=== PATIENT | male | born 1940 | race Caucasian/White ===

== ENCOUNTER 2016-08-28 08:29 | Inpatient (IN) | payer MEDICARE, MEDICAID ==
[~2016-08-28] VITALS: Ht 167.6 cm; Wt 66.0 kg
[2016-08-28] MEDS ORDERED: METHYLPRED SOD SUCC 125 MG/2 ML VIAL ONE (08:57)
[2016-08-28] MEDS ORDERED: DUONEB INH ONE ×2 (09:01→09:18)
[2016-08-28] MEDS ORDERED: SALINE FLUSH 10 ML FLUSH PRN (10:40)
[2016-08-28] MEDS ORDERED: ONDANSETRON 4 MG VIAL IV PRN (10:40)
[2016-08-28] MEDS: DUONEB INH SCH ×4 (10:40→22:54)
[2016-08-28] MEDS: ENOXAPARIN 40 MG/0.4 ML SYR SUBQ SCH (11:54)
[2016-08-28 12:11] VITALS: BMI 24.2
[2016-08-28] MEDS: CEFTRIAXONE 1 GM in SODIUM CHLORIDE 0.9% 50 ML IV SCH (13:08)
[2016-08-28 13:12] VITALS: BP_SYST 123; BP_SYST 147; RESP 18; TEMP 97.5
[2016-08-28 15:09] VITALS: RESP 26
[2016-08-28] MEDS: METHYLPRED SOD SUCC 40 MG VIAL IV SCH ×2 (15:38→23:26)
[2016-08-28 16:00] VITALS: BP_SYST 149; RESP 18; TEMP 97.7
[2016-08-28] MEDS: NICOTINE 14 MG/24 HR TDSY TRANSDERM SCH (17:21)
[2016-08-28 19:55] VITALS: BP_SYST 131; RESP 20; TEMP 97.5
[2016-08-28] MEDS: SALINE FLUSH 10 ML FLUSH SCH (20:00)
[2016-08-28 21:14] VITALS: Ht 167.6 cm; Wt 66.0 kg
[2016-08-28 23:18] VITALS: BP_SYST 136; RESP 18; TEMP 97.8
[2016-08-29] MEDS: NEB-ALBUTEROL 2.5 MG/3 ML INH PRN (03:01)
[2016-08-29 03:20] VITALS: BP_SYST 145; RESP 18; TEMP 97.5
[2016-08-29] MEDS: SODIUM CHLORIDE 0.9% FLUSH BAG 500 ML IV SCH ×3 (05:58→06:00)
[2016-08-29 07:00] VITALS: BP_SYST 145; RESP 20; TEMP 97.5
[2016-08-29] MEDS: DUONEB INH SCH ×3 (08:17→22:28)
[2016-08-29] MEDS ORDERED: MISSING DOSE XX ONE (09:00)
[2016-08-29] MEDS: CEFTRIAXONE 1 GM in SODIUM CHLORIDE 0.9% 50 ML IV SCH (09:16)
[2016-08-29] MEDS: METHYLPRED SOD SUCC 40 MG VIAL IV SCH ×3 (09:17→23:28)
[2016-08-29] MEDS: SALINE FLUSH 10 ML FLUSH SCH ×2 (09:17→20:34)
[2016-08-29] MEDS: ENOXAPARIN 40 MG/0.4 ML SYR SUBQ SCH (09:18)
[2016-08-29] MEDS: NICOTINE 14 MG/24 HR TDSY TRANSDERM SCH (09:25)
[2016-08-29 11:00] VITALS: BP_SYST 129; RESP 20; TEMP 97.8
[2016-08-29 15:34] VITALS: BP_SYST 138; RESP 20; TEMP 97.2
[2016-08-29 19:15] VITALS: BP_SYST 165; RESP 20; TEMP 98
[2016-08-29] MEDS: FAMOTIDINE 20 MG TAB PO SCH (20:34)
[2016-08-29 23:11] VITALS: BP_SYST 140; RESP 20; TEMP 97.5
[2016-08-30] MEDS: NEB-ALBUTEROL 2.5 MG/3 ML INH PRN ×2 (02:57→03:52)
[2016-08-30 03:40] VITALS: BP_SYST 139; RESP 20; TEMP 97.3
[2016-08-30] MEDS: SODIUM CHLORIDE 0.9% FLUSH BAG 500 ML IV SCH ×3 (06:00→06:21)
[2016-08-30] MEDS: DUONEB INH SCH ×4 (07:57→23:16)
[2016-08-30 08:02] VITALS: BP_SYST 136; RESP 18; TEMP 97.5
[2016-08-30] MEDS: SALINE FLUSH 10 ML FLUSH SCH ×2 (08:10→20:57)
[2016-08-30] MEDS: METHYLPRED SOD SUCC 40 MG VIAL IV SCH ×3 (08:11→20:59)
[2016-08-30] MEDS: NICOTINE 14 MG/24 HR TDSY TRANSDERM SCH (08:12)
[2016-08-30] MEDS: FAMOTIDINE 20 MG TAB PO SCH ×2 (08:12→20:56)
[2016-08-30] MEDS: ENOXAPARIN 40 MG/0.4 ML SYR SUBQ SCH (08:12)
[2016-08-30] MEDS: CEFTRIAXONE 1 GM in SODIUM CHLORIDE 0.9% 50 ML IV SCH (08:13)
[2016-08-30 11:00] VITALS: BP_SYST 126; RESP 18; TEMP 97.3
[2016-08-30 14:52] VITALS: BP_SYST 166; RESP 22; TEMP 97.3
[2016-08-30 19:39] VITALS: BP_SYST 136; RESP 18; TEMP 97.3
[2016-08-30 23:33] VITALS: BP_SYST 147; RESP 20; TEMP 97.4
[2016-08-31] VITALS (7 sets, daily range): BP systolic 102–158; RESP 18–20; TEMP 96.6–97.9
[2016-08-31] MEDS: SODIUM CHLORIDE 0.9% FLUSH BAG 500 ML IV SCH ×3 (01:30)
[2016-08-31] MEDS: NEB-ALBUTEROL 2.5 MG/3 ML INH PRN ×2 (03:29→11:03)
[2016-08-31] MEDS: DUONEB INH SCH ×4 (07:38→22:50)
[2016-08-31] MEDS: CEFTRIAXONE 1 GM in SODIUM CHLORIDE 0.9% 50 ML IV SCH (08:54)
[2016-08-31] MEDS: FAMOTIDINE 20 MG TAB PO SCH ×2 (08:54→20:34)
[2016-08-31] MEDS: ENOXAPARIN 40 MG/0.4 ML SYR SUBQ SCH (08:54)
[2016-08-31] MEDS: NICOTINE 14 MG/24 HR TDSY TRANSDERM SCH (08:55)
[2016-08-31] MEDS: SALINE FLUSH 10 ML FLUSH SCH ×2 (08:55→20:34)
[2016-08-31] MEDS: METHYLPRED SOD SUCC 40 MG VIAL IV SCH ×2 (08:55→16:14)
[2016-09-01] MEDS: NEB-ALBUTEROL 2.5 MG/3 ML INH PRN ×2 (02:29→11:18)
[2016-09-01 03:33] VITALS: BP_SYST 153; RESP 16; TEMP 97.9
[2016-09-01] MEDS: SODIUM CHLORIDE 0.9% FLUSH BAG 500 ML IV SCH ×3 (06:00→06:20)
[2016-09-01] MEDS: DUONEB INH SCH ×2 (06:14→15:26)
[2016-09-01 07:30] VITALS: BP_SYST 147; RESP 18; TEMP 97.5
[2016-09-01] MEDS ORDERED: MISSING DOSE XX ONE (08:40)
[2016-09-01] MEDS ORDERED: PREDNISONE 20 MG TAB PO SCH (09:00)
[2016-09-01] MEDS: SALINE FLUSH 10 ML FLUSH SCH (09:00)
[2016-09-01] MEDS: NICOTINE 14 MG/24 HR TDSY TRANSDERM SCH (09:00)
[2016-09-01] MEDS: ENOXAPARIN 40 MG/0.4 ML SYR SUBQ SCH (09:01)
[2016-09-01] MEDS: FAMOTIDINE 20 MG TAB PO SCH (09:02)
[2016-09-01] MEDS: CEFTRIAXONE 1 GM in SODIUM CHLORIDE 0.9% 50 ML IV SCH (09:02)
[2016-09-01 11:34] VITALS: BP_SYST 138; RESP 18; TEMP 97.7
[2016-09-01 15:33] VITALS: BP_SYST 154; RESP 18; TEMP 97.8
[2016-09-01 16:00] VITALS: BP_SYST 154; RESP 18; TEMP 97.8
== END 2016-09-01 16:48 | disposition home or self-care (01) | DRG 189 ==
LOC: ENRESERVDT → ENRESERVTM → ER 08:29 → EMR 10:55 → ENPENDDIS 10:55 → 4THW 11:53
PROVIDERS: ADMIT Family Medicine; ATTEND Family Medicine
DX: J96.01 Acute respiratory failure with hypoxia (principal); J44.1 Chronic obstructive pulmonary disease with (acute) exacerbation; I10 Essential (primary) hypertension; F17.210 Nicotine dependence, cigarettes, uncomplicated; Z85.038 Personal history of other malignant neoplasm of large intestine
CPT/HCPCS: 36415; 36600; 71010; 80048; 80053; 80061; 82553; 82803; 83880; 84484; 85025; 87071; 87804; 93005; 94640; 94667; 94799; 96374; 99223; 99232; 99233; 99239